=== PATIENT | male | born 1950 | race Hispanic/Latino ===

== ENCOUNTER 2021-05-29 08:17 | Inpatient (IN) | payer MEDICARE ==
[2021-05-27 09:43] LABS: BASOPHILS % (AUTO) 0.8 % (0.0-5.0); EOSINOPHILS % (AUTO) 5.2 % (0.0-8.0); HEMATOCRIT 49.4 % (42-54); LYMPHOCYTES % (AUTO) 24.2 % (21.0-51.0); MEAN CORPUSCULAR HEMOGLOBIN 28.4 pg (27.0-33.0); MEAN CORPUSCULAR VOLUME 86.1 fL (79-99); MONOCYTES % (AUTO) 12.4 % (3.0-13.0); NEUTROPHILS % (AUTO) 56.9 % (40.0-77.0); PLATELET COUNT (AUTO) 204 K/uL (130-400); RED BLOOD CELL COUNT(AUTO) 5.74 MIL/uL (4.50-6.20); RED CELL DISTRIBUTION WIDTH 12.2 % (11.0-15.5); WHITE BLOOD COUNT (AUTO) 7.4 K/uL (4.8-10.8)
[2021-05-27 09:46] LABS: APPEARANCE,URINE Clear (CLEAR); BILIRUBIN,URINE Negative (NEGATIVE); COLOR,URINE Yellow (YELLOW); GLUCOSE, URINE (UA) Negative (NEGATIVE); KETONES,URINE Negative (NEGATIVE); LEUKOCYTE ESTERASE ,URINE Negative (NEGATIVE); NITRATE,URINE Negative (NEGATIVE); OCCULT BLOOD,URINE Negative (NEGATIVE); PROTEIN,URINE Negative (NEGATIVE); UROBILINOGEN,URINE 0.2 mg/dL (0.2-1.0)
[2021-05-27 09:52] LABS: CREATININE 0.8 mg/dL (0.5-1.5); POTASSIUM 4.2 mmol/L (3.5-5.1)
[2021-05-27 09:55] LABS: INR 1.1 (0.85-1.15); PARTIAL THROMBOPLASTIN TIME 25.2 SEC (26.3-35.5); PROTHROMBIN TIME 11.3 SEC (9.6-11.6)
[2021-05-27 10:46] LABS: B-TYPE NATRIURETIC PEPTIDE 59 pg/mL (0-100)
[2021-05-29] VITALS (21 sets, daily range): BP systolic 109–154; BP diastolic 57–83
[~2021-05-29] VITALS: Ht 162.6 cm; Wt 83.5 kg
[~2021-05-29 08:17] MED LIST: 0.9% NACL 500ML IV.SOLN 500 ML IV SCH; ASPI-1443 PO; ATOR20TA65 PO; METO25TA6 PO
[2021-05-29] MEDS ORDERED: 0.9%NACL 1000ML 1,000 ML IV ONE (09:42)
[2021-05-29] MEDS ORDERED: IOHEXOL 350 MG/ML 100ML INFUS..BTL IV ONE (12:01)
[2021-05-29] MEDS ORDERED: LIDOCAINE HCL 1% MDV 50ML VIAL ONE (12:01)
[2021-05-29] MEDS ORDERED: IOHEXOL-350 50ML VIAL IV ONE (12:01)
[2021-05-29] MEDS ORDERED: NITROGLYCERIN 50MG VIAL ONE (12:02)
[2021-05-29] MEDS ORDERED: MIDAZOLAM HCL 1 MG/ML 2ML VIAL ONE (12:02)
[2021-05-29] MEDS ORDERED: FENTANYL CITRATE PF 50 MCG/1 ML 2ML VIAL ONE (12:03)
[2021-05-29] MEDS ORDERED: DEXTROSE 50%-WATER 50 ML DISP.SYRIN IV PRN (13:00)
[2021-05-29] MEDS ORDERED: GLUCAGON 1MG KIT 1 MG ML IM PRN (13:00)
[2021-05-29] MEDS ORDERED: 0.9%NACL 1000ML 1,000 ML IV SCH (13:00)
[2021-05-29] MEDS ORDERED: ONDANSETRON 4MG INJ IVP PRN (22:00)
[2021-05-29] MEDS ORDERED: ACETAMINOPHEN 325 MG TAB PO PRN (22:00)
[2021-05-29] MEDS: ATORVASTATIN 20 MG TABLET PO SCH (22:09)
[2021-05-29] MEDS: ASPIRIN 81 MG EC TAB PO SCH (22:09)
[2021-05-30] VITALS (7 sets, daily range): BP systolic 119–140; BP diastolic 67–81
[2021-05-30 04:08] LABS: BASOPHILS % (AUTO) 0.6 % (0.0-5.0); EOSINOPHILS % (AUTO) 5.2 % (0.0-8.0); HEMATOCRIT 45.1 % (42-54); LYMPHOCYTES % (AUTO) 23.3 % (21.0-51.0); MEAN CORPUSCULAR HEMOGLOBIN 29.1 pg (27.0-33.0); MEAN CORPUSCULAR HGB CONC 33.7 g/dL (32.0-36.0); MEAN CORPUSCULAR VOLUME 86.4 fL (79-99); MONOCYTES % (AUTO) 10.7 % (3.0-13.0); NEUTROPHILS % (AUTO) 59.9 % (40.0-77.0); PLATELET COUNT (AUTO) 195 K/uL (130-400); RED BLOOD CELL COUNT(AUTO) 5.22 MIL/uL (4.50-6.20); RED CELL DISTRIBUTION WIDTH 12.4 % (11.0-15.5); WHITE BLOOD COUNT (AUTO) 8.9 K/uL (4.8-10.8)
[2021-05-30 04:12] LABS: HEMOGLOBIN A1C 5.6 % (4.0-6.0)
[2021-05-30 04:18] LABS: INR 1.09 (0.85-1.15); PROTHROMBIN TIME 11.8 SEC (9.6-11.6)
[2021-05-30 04:20] LABS: B-TYPE NATRIURETIC PEPTIDE 57 pg/mL (0-100); PARTIAL THROMBOPLASTIN TIME 26.2 SEC (26.3-35.5)
[2021-05-30 04:29] LABS: ALBUMIN 3.5 g/dL (3.5-5.0); BILIRUBIN,TOTAL 0.7 mg/dL (0.2-1.0); CREATININE 0.9 mg/dL (0.5-1.5); MAGNESIUM 2.1 mg/dL (1.80-2.40); TOTAL PROTEIN, SERUM 6.8 g/dL (6.0-8.3)
[2021-05-30] MEDS ORDERED: ENOXAPARIN SODIUM 30 MG/0.3 ML SQ SCH (09:00)
[2021-05-30] MEDS: METOPROLOL TARTRATE 25 MG TAB PO SCH (09:07)
[2021-05-30] MEDS: FAMOTIDINE 20MG VIAL IV SCH ×2 (09:08→21:00)
[2021-05-30] MEDS: ASPIRIN 81 MG EC TAB PO SCH (21:00)
[2021-05-30] MEDS: ATORVASTATIN 20 MG TABLET PO SCH (21:00)
[2021-05-31] VITALS (42 sets, daily range): BP systolic 81–189; BP diastolic 41–103
[2021-05-31 03:38] LABS: BASOPHILS % (AUTO) 0.7 % (0.0-5.0); EOSINOPHILS % (AUTO) 5.8 % (0.0-8.0); HEMATOCRIT 44.9 % (42-54); LYMPHOCYTES % (AUTO) 25.6 % (21.0-51.0); MEAN CORPUSCULAR HEMOGLOBIN 28.6 pg (27.0-33.0); MEAN CORPUSCULAR HGB CONC 33.2 g/dL (32.0-36.0); MEAN CORPUSCULAR VOLUME 86.2 fL (79-99); MONOCYTES % (AUTO) 11.6 % (3.0-13.0); NEUTROPHILS % (AUTO) 55.9 % (40.0-77.0); PLATELET COUNT (AUTO) 176 K/uL (130-400); RED BLOOD CELL COUNT(AUTO) 5.21 MIL/uL (4.50-6.20); RED CELL DISTRIBUTION WIDTH 12.3 % (11.0-15.5)
[2021-05-31 04:12] LABS: ALBUMIN 3.5 g/dL (3.5-5.0); BILIRUBIN,TOTAL 0.6 mg/dL (0.2-1.0); CREATININE 0.9 mg/dL (0.5-1.5); MAGNESIUM 2.2 mg/dL (1.80-2.40); PHOSPHORUS 3.6 mg/dL (2.5-4.9); POTASSIUM 4.4 mmol/L (3.5-5.1); TOTAL PROTEIN, SERUM 6.8 g/dL (6.0-8.3)
[2021-05-31] MEDS: METOPROLOL TARTRATE 25 MG TAB PO SCH (08:07)
[2021-05-31] MEDS: FAMOTIDINE 20MG VIAL IV SCH (08:07)
[2021-05-31] MEDS ORDERED: AMINOCAPROIC ACID 5,000MG VIAL 15,000 MG in 0.9% NACL 500ML IV.SOLN 420 ML IV PRN (08:30)
[2021-05-31] MEDS ORDERED: NOREPINEPHRINE BITARTRATE 8 MG in 0.9% NACL 250ML 250 ML IV PRN (08:30)
[2021-05-31] MEDS ORDERED: EPINEPHRINE PF 1MG AMP 10 MG in 0.9% NACL 250ML 240 ML IV PRN ×2 (08:30→15:30)
[2021-05-31] MEDS ORDERED: CEFAZOLIN SODIUM 1 GM VIAL ONE ×2 (11:45→13:28)
[2021-05-31] MEDS ORDERED: PAPAVERINE HCL 30 MG/ML 2ML VIAL ONE (11:46)
[2021-05-31] MEDS ORDERED: OCTYL 2-CYANOACRYLATE 1 EACH TP ONE (11:46)
[2021-05-31] MEDS ORDERED: NOREPINEPHRINE BITARTRATE 1 MG/1 ML ML IV ONE (11:49)
[2021-05-31] MEDS ORDERED: PROTAMINE SULFATE 10 MG/ML 25ML VIAL IV ONE (11:49)
[2021-05-31] MEDS ORDERED: HEPARIN 10,000 UNIT/10ML (1,000 UNIT/ML) VIAL ONE (11:49)
[2021-05-31] MEDS ORDERED: EPINEPHRINE PF 1MG AMP ONE (11:49)
[2021-05-31] MEDS ORDERED: ESMOLOL HCL 10 MG/ML 10 ML VIAL ONE (11:49)
[2021-05-31] MEDS ORDERED: AMINOCAPROIC ACID 5,000MG VIAL ONE (11:49)
[2021-05-31] MEDS ORDERED: FENTANYL CITRATE PF 50 MCG/1 ML 20ML VIAL IJ ONE (11:49)
[2021-05-31] MEDS ORDERED: LIDOCAINE PF 100MG/5ML (2%) SYRINGE 5ML ONE ×2 (11:49→11:50)
[2021-05-31] MEDS ORDERED: SODIUM BICARB 50MEQ 50ML VIAL 150 ML ONE (11:49)
[2021-05-31] MEDS ORDERED: ROCURONIUM 10MG/1ML SYR 10 MG/ML ML ONE ×2 (11:50→13:52)
[2021-05-31] MEDS ORDERED: PROPOFOL 10 MG/ML 20ML VIAL IV ONE (11:50)
[2021-05-31] MEDS ORDERED: MIDAZOLAM HCL 1 MG/ML 2ML VIAL ONE (11:50)
[2021-05-31] MEDS ORDERED: ETOMIDATE 20MG VIAL ONE (11:51)
[2021-05-31] MEDS ORDERED: AMIODARONE 150MG VIAL ONE (11:52)
[2021-05-31] MEDS ORDERED: VASOPRESSIN 20 UNITS/ML 1ML VIAL ONE (11:52)
[2021-05-31 13:07] LABS: ABG BASE EXCESS -4.1 mmol/L (-2.0-3.0); ABG HCO3 21.2 mmol/L (21.0-28.0); ABG OXYGEN SATURATION 99.6 % (95.0-99.0); ABG PCO2 40 mmHg (35-48)
[2021-05-31] MEDS ORDERED: SODIUM BICARB 50MEQ 50ML VIAL 50 ML ONE (13:20)
[2021-05-31] MEDS ORDERED: SODIUM BICARB 50MEQ 50ML VIAL 200 ML ONE (13:21)
[2021-05-31] MEDS ORDERED: NITROGLYCERIN 50MG/D5W 250ML 1 BOT ONE (13:27)
[2021-05-31] MEDS ORDERED: GLYCOPYRROLATE 1 MG/5 ML SYRINGE ONE (13:28)
[2021-05-31] MEDS ORDERED: ATROPINE 1MG SYG IVP ONE (13:29)
[2021-05-31 13:43] LABS: ABG BASE EXCESS 2.9 mmol/L (-2.0-3.0); ABG OXYGEN SATURATION 99.5 % (95.0-99.0); ABG PCO2 40 mmHg (35-48)
[2021-05-31 15:13] LABS: ABG BASE EXCESS -5.8 mmol/L (-2.0-3.0); ABG OXYGEN SATURATION 99.4 % (95.0-99.0); ABG PCO2 35 mmHg (35-48)
[2021-05-31] MEDS ORDERED: NOREPINEPHRIN 4MG/NS 250ML 250 ML IV PRN (15:30)
[2021-05-31] MEDS ORDERED: DEXTROSE 50%-WATER 50 ML DISP.SYRIN IV PRN (15:30)
[2021-05-31] MEDS ORDERED: MAGNESIUM 2GM PREMIX 50ML 50 ML IV PRN (15:30)
[2021-05-31] MEDS ORDERED: ONDANSETRON 4MG INJ IV PRN (15:30)
[2021-05-31] MEDS ORDERED: MORPHINE 2 MG SYG IV PRN (15:30)
[2021-05-31] MEDS ORDERED: 0.9%NACL 10ML VIAL IVP PRN (15:30)
[2021-05-31] MEDS ORDERED: TRAMADOL HCL 50 MG TABLET PO PRN (15:30)
[2021-05-31] MEDS ORDERED: POTASSIUM PHOS 15 mMOL+NS250ML 250 ML IV PRN (15:30)
[2021-05-31] MEDS ORDERED: INSULIN REGULAR, HUMAN 3ML 100 UNIT in 0.9%NACL 100ML 99 ML IV SCH ×2 (15:30)
[2021-05-31] MEDS ORDERED: AMINOCAPROIC ACID 5,000MG VIAL 15,000 MG in 0.9% NACL 250ML 250 ML IV SCH (15:30)
[2021-05-31] MEDS ORDERED: 0.9% NACL 500ML IV.SOLN 500 ML IV SCH (15:30)
[2021-05-31] MEDS ORDERED: GLUCAGON 1MG KIT 1 MG ML IM PRN (15:30)
[2021-05-31] MEDS ORDERED: NITROGLYCERIN 50MG/D5W 250ML 250 BOT IV SCH (15:30)
[2021-05-31] MEDS ORDERED: ASPIRIN 81MG CHEW TAB NG ONE (15:30)
[2021-05-31] MEDS ORDERED: ACETAMINOPHEN 650 MG SUPPOSITORY RC PRN (15:30)
[2021-05-31] MEDS ORDERED: ALBUMIN (HUMAN) 5% 250 ML IV PRN (15:30)
[2021-05-31] MEDS ORDERED: MORPHINE 4 MG SYG IV PRN (15:30)
[2021-05-31] MEDS ORDERED: PROPOFOL 1000 MG/100 ML 100 ML IV PRN (15:30)
[2021-05-31] MEDS ORDERED: CALCIUM GLUC 1GM 1 GM in 0.9%NACL 50ML 50 ML IV PRN (15:30)
[2021-05-31] MEDS ORDERED: 0.9%NACL 1000ML 1,000 ML IV SCH (15:30)
[2021-05-31 16:22] LABS: ABG BASE EXCESS -5.4 mmol/L (-2.0-3.0); ABG HCO3 22.3 mmol/L (21.0-28.0); ABG OXYGEN SATURATION 96.3 % (95.0-99.0); ABG PCO2 52 mmHg (35-48)
[2021-05-31 16:23] LABS: HEMATOCRIT 43.4 % (42-54); MEAN CORPUSCULAR HGB CONC 34.1 g/dL (32.0-36.0); MEAN CORPUSCULAR VOLUME 87.9 fL (79-99); RED BLOOD CELL COUNT(AUTO) 4.94 MIL/uL (4.50-6.20); RED CELL DISTRIBUTION WIDTH 12.4 % (11.0-15.5); WHITE BLOOD COUNT (AUTO) 27.3 K/uL (4.8-10.8)
[2021-05-31 16:25] LABS: BASE EXCESS,VENOUS BLOOD GAS -5.5 (-2.0-3.0); HCO3,VENOUS BLOOD GAS 23.4 (21.0-28.0); PCO2,VENOUS BLOOD GAS 60 (35-48); PH,VENOUS BLOOD GAS 7.211 (7.350-7.450)
[2021-05-31] MEDS: POTASSIUM CHLORIDE 20MEQ/100ML 100 ML IV PRN ×4 (16:32→22:06)
[2021-05-31] MEDS: SODIUM BICARB 50MEQ 50ML VIAL IV PRN ×4 (16:33→18:21)
[2021-05-31 16:38] LABS: INR 1.21 (0.85-1.15)
[2021-05-31 16:40] LABS: PARTIAL THROMBOPLASTIN TIME 24.7 SEC (26.3-35.5)
[2021-05-31 16:47] LABS: CREATININE 1.1 mg/dL (0.5-1.5); MAGNESIUM 1.7 mg/dL (1.80-2.40); POTASSIUM 3.8 mmol/L (3.5-5.1)
[2021-05-31] MEDS: MORPHINE 2 MG SYG IV PRN ×2 (17:04→23:44)
[2021-05-31] MEDS: ACETAMINOPHEN 325 MG TAB PO PRN ×2 (17:05→22:05)
[2021-05-31 17:19] LABS: ABG HCO3 26.3 mmol/L (21.0-28.0); ABG OXYGEN SATURATION 94.6 % (95.0-99.0); ABG PCO2 45 mmHg (35-48)
[2021-05-31 18:19] LABS: ABG BASE EXCESS -2.2 mmol/L (-2.0-3.0); ABG HCO3 19.5 mmol/L (21.0-28.0); ABG OXYGEN SATURATION 97.2 % (95.0-99.0); ABG PCO2 26 mmHg (35-48)
[2021-05-31 19:05] LABS: ABG HCO3 27.7 mmol/L (21.0-28.0); ABG OXYGEN SATURATION 97.3 % (95.0-99.0); ABG PCO2 43 mmHg (35-48)
[2021-05-31] MEDS ORDERED: CALCIUM GLUC 1GM/10ML VIAL ONE (19:20)
[2021-05-31 20:04] LABS: ABG BASE EXCESS 0.5 mmol/L (-2.0-3.0); ABG HCO3 25.7 mmol/L (21.0-28.0); ABG OXYGEN SATURATION 96.4 % (95.0-99.0); ABG PCO2 44 mmHg (35-48)
[2021-05-31] MEDS ORDERED: FAMOTIDINE 20MG VIAL IV SCH (21:00)
[2021-05-31 21:11] LABS: ABG BASE EXCESS 0.1 mmol/L (-2.0-3.0); ABG HCO3 25.2 mmol/L (21.0-28.0); ABG OXYGEN SATURATION 96.6 % (95.0-99.0); ABG PCO2 43 mmHg (35-48)
[2021-05-31] MEDS: CEFAZOLIN SODIUM 1 GM VIAL IV SCH (22:04)
[2021-05-31 22:16] LABS: ABG BASE EXCESS 0.3 mmol/L (-2.0-3.0); ABG HCO3 24.8 mmol/L (21.0-28.0); ABG OXYGEN SATURATION 96.8 % (95.0-99.0); ABG PCO2 40 mmHg (35-48)
[2021-06-01] VITALS (31 sets, daily range): BP systolic 93–135; BP diastolic 46–82
[2021-06-01 00:53] LABS: ABG BASE EXCESS 0.5 mmol/L (-2.0-3.0); ABG HCO3 26.1 mmol/L (21.0-28.0); ABG OXYGEN SATURATION 95.7 % (95.0-99.0); ABG PCO2 45 mmHg (35-48)
[2021-06-01 02:19] LABS: ABG BASE EXCESS 1.4 mmol/L (-2.0-3.0); ABG HCO3 26.6 mmol/L (21.0-28.0); ABG OXYGEN SATURATION 96.8 % (95.0-99.0); ABG PCO2 45 mmHg (35-48)
[2021-06-01] MEDS: TRAMADOL HCL 50 MG TABLET PO PRN ×3 (02:52→19:21)
[2021-06-01] MEDS: CEFAZOLIN SODIUM 1 GM VIAL IV SCH ×2 (05:00→13:04)
[2021-06-01 05:01] LABS: ABG BASE EXCESS 2.6 mmol/L (-2.0-3.0); ABG HCO3 27.6 mmol/L (21.0-28.0); ABG OXYGEN SATURATION 96.6 % (95.0-99.0); ABG PCO2 44 mmHg (35-48)
[2021-06-01 05:03] LABS: HEMATOCRIT 39.2 % (42-54); MEAN CORPUSCULAR HEMOGLOBIN 28.7 pg (27.0-33.0); MEAN CORPUSCULAR HGB CONC 32.4 g/dL (32.0-36.0); MEAN CORPUSCULAR VOLUME 88.5 fL (79-99); RED BLOOD CELL COUNT(AUTO) 4.43 MIL/uL (4.50-6.20); RED CELL DISTRIBUTION WIDTH 12.7 % (11.0-15.5); WHITE BLOOD COUNT (AUTO) 15.9 K/uL (4.8-10.8)
[2021-06-01 05:12] LABS: INR 1.21 (0.85-1.15)
[2021-06-01 05:14] LABS: PARTIAL THROMBOPLASTIN TIME 26.5 SEC (26.3-35.5)
[2021-06-01 05:20] LABS: CREATININE 1.1 mg/dL (0.5-1.5); PHOSPHORUS 4.2 mg/dL (2.5-4.9); POTASSIUM 4.3 mmol/L (3.5-5.1)
[2021-06-01] MEDS: FAMOTIDINE 20MG TAB PO SCH ×2 (09:33→21:13)
[2021-06-01] MEDS: ASPIRIN 81MG CHEW TAB PO SCH (10:27)
[2021-06-01] MEDS: METOPROLOL TARTRATE 25 MG TAB PO SCH (21:13)
[2021-06-01] MEDS: ATORVASTATIN 40 MG TABLET PO SCH (21:13)
[2021-06-02] VITALS (30 sets, daily range): BP systolic 95–134; BP diastolic 51–84
[2021-06-02 04:13] LABS: BASOPHILS % (AUTO) 0.4 % (0.0-5.0); EOSINOPHILS % (AUTO) 0.5 % (0.0-8.0); HEMATOCRIT 36.5 % (42-54); LYMPHOCYTES % (AUTO) 11.2 % (21.0-51.0); MEAN CORPUSCULAR HEMOGLOBIN 28.9 pg (27.0-33.0); MEAN CORPUSCULAR HGB CONC 32.3 g/dL (32.0-36.0); MEAN CORPUSCULAR VOLUME 89.2 fL (79-99); MONOCYTES % (AUTO) 8.7 % (3.0-13.0); NEUTROPHILS % (AUTO) 78.9 % (40.0-77.0); PLATELET COUNT (AUTO) 108 K/uL (130-400); RED BLOOD CELL COUNT(AUTO) 4.09 MIL/uL (4.50-6.20); RED CELL DISTRIBUTION WIDTH 12.7 % (11.0-15.5)
[2021-06-02 04:36] LABS: ALBUMIN 2.7 g/dL (3.5-5.0); BILIRUBIN,TOTAL 0.9 mg/dL (0.2-1.0); CREATININE 0.9 mg/dL (0.5-1.5); MAGNESIUM 2.2 mg/dL (1.80-2.40); PHOSPHORUS 2.6 mg/dL (2.5-4.9); POTASSIUM 4.4 mmol/L (3.5-5.1); TOTAL PROTEIN, SERUM 5.8 g/dL (6.0-8.3)
[2021-06-02] MEDS: METOPROLOL TARTRATE 25 MG TAB PO SCH ×2 (08:12→21:03)
[2021-06-02] MEDS: ASPIRIN 81MG CHEW TAB PO SCH (08:12)
[2021-06-02] MEDS: FAMOTIDINE 20MG TAB PO SCH ×2 (08:23→21:04)
[2021-06-02] MEDS ORDERED: AMIODARONE 900MG VIAL 360 MG in DEXTROSE 5%-WATER 200 ML IV SCH (08:30)
[2021-06-02] MEDS ORDERED: AMIODARONE 900MG VIAL 150 MG in DEXTROSE 5%-WATER 100 ML IV SCH (08:30)
[2021-06-02] MEDS: AMIODARONE 900MG VIAL 540 MG in DEXTROSE 5%-WATER 300 ML IV SCH ×2 (08:45→16:19)
[2021-06-02] MEDS ORDERED: FUROSEMIDE 20 MG TABLET PO SCH (10:00)
[2021-06-02] MEDS: TRAMADOL HCL 50 MG TABLET PO PRN (10:03)
[2021-06-02] MEDS: FUROSEMIDE 20 MG TABLET PO SCH (16:23)
[2021-06-02] MEDS ORDERED: METOPROLOL TARTRATE 25 MG TAB PO SCH (21:00)
[2021-06-02] MEDS: ATORVASTATIN 40 MG TABLET PO SCH (21:03)
[2021-06-03] VITALS (7 sets, daily range): BP systolic 113–126; BP diastolic 58–75
[2021-06-03] MEDS: AMIODARONE 900MG VIAL 540 MG in DEXTROSE 5%-WATER 300 ML IV SCH ×2 (03:07→21:44)
[2021-06-03 04:25] LABS: BASOPHILS % (AUTO) 0.3 % (0.0-5.0); EOSINOPHILS % (AUTO) 1.9 % (0.0-8.0); HEMATOCRIT 34.9 % (42-54); LYMPHOCYTES % (AUTO) 10.7 % (21.0-51.0); MEAN CORPUSCULAR HEMOGLOBIN 29.6 pg (27.0-33.0); MEAN CORPUSCULAR HGB CONC 33.8 g/dL (32.0-36.0); MEAN CORPUSCULAR VOLUME 87.7 fL (79-99); MONOCYTES % (AUTO) 8.3 % (3.0-13.0); NEUTROPHILS % (AUTO) 78.2 % (40.0-77.0); PLATELET COUNT (AUTO) 114 K/uL (130-400); RED BLOOD CELL COUNT(AUTO) 3.98 MIL/uL (4.50-6.20); RED CELL DISTRIBUTION WIDTH 12.4 % (11.0-15.5); WHITE BLOOD COUNT (AUTO) 12.7 K/uL (4.8-10.8)
[2021-06-03 04:37] LABS: ALBUMIN 2.5 g/dL (3.5-5.0); BILIRUBIN,TOTAL 1.2 mg/dL (0.2-1.0); CREATININE 0.9 mg/dL (0.5-1.5); MAGNESIUM 2.1 mg/dL (1.80-2.40); PHOSPHORUS 2.5 mg/dL (2.5-4.9); POTASSIUM 3.8 mmol/L (3.5-5.1); TOTAL PROTEIN, SERUM 6.1 g/dL (6.0-8.3)
[2021-06-03] MEDS ORDERED: AMIODARONE 200 MG TABLET PO SCH (09:00)
[2021-06-03] MEDS: FAMOTIDINE 20MG TAB PO SCH ×2 (09:25→21:57)
[2021-06-03] MEDS: METOPROLOL TARTRATE 25 MG TAB PO SCH ×2 (09:25→21:57)
[2021-06-03] MEDS: FUROSEMIDE 20 MG TABLET PO SCH ×2 (09:25→17:29)
[2021-06-03] MEDS: AMIODARONE 200 MG TABLET PO SCH ×2 (09:25→21:58)
[2021-06-03] MEDS: ASPIRIN 81MG CHEW TAB PO SCH (09:26)
[2021-06-03] MEDS: ENOXAPARIN SODIUM 30 MG/0.3 ML SQ SCH (09:26)
[2021-06-03] MEDS: ACETAMINOPHEN 325 MG TAB PO PRN ×2 (11:54→22:01)
[2021-06-03] MEDS: POLYETHYLENE GLYCOL 3350 17 GM POWD.PACK PO SCH (17:29)
[2021-06-03] MEDS: DOCUSATE CALCIUM 240 MG CAP PO SCH (19:09)
[2021-06-03] MEDS: SENNOSIDES 8.6 MG TABLET PO SCH (21:57)
[2021-06-03] MEDS: ATORVASTATIN 40 MG TABLET PO SCH (21:57)
[2021-06-04 03:27] VITALS: BP 117/84
[2021-06-04 04:32] LABS: BASOPHILS % (AUTO) 0.5 % (0.0-5.0); EOSINOPHILS % (AUTO) 1.8 % (0.0-8.0); HEMATOCRIT 39.1 % (42-54); LYMPHOCYTES % (AUTO) 11.4 % (21.0-51.0); MEAN CORPUSCULAR HEMOGLOBIN 28.4 pg (27.0-33.0); MEAN CORPUSCULAR VOLUME 86.1 fL (79-99); MONOCYTES % (AUTO) 9.9 % (3.0-13.0); NEUTROPHILS % (AUTO) 75.5 % (40.0-77.0); PLATELET COUNT (AUTO) 162 K/uL (130-400); RED BLOOD CELL COUNT(AUTO) 4.54 MIL/uL (4.50-6.20); RED CELL DISTRIBUTION WIDTH 12.3 % (11.0-15.5); WHITE BLOOD COUNT (AUTO) 13.7 K/uL (4.8-10.8)
[2021-06-04 04:49] LABS: CREATININE 0.9 mg/dL (0.5-1.5); MAGNESIUM 2.3 mg/dL (1.80-2.40); PHOSPHORUS 2.7 mg/dL (2.5-4.9); POTASSIUM 3.9 mmol/L (3.5-5.1)
[2021-06-04 08:10] VITALS: BP 112/66
[2021-06-04] MEDS: POLYETHYLENE GLYCOL 3350 17 GM POWD.PACK PO SCH (08:21)
[2021-06-04] MEDS: ENOXAPARIN SODIUM 30 MG/0.3 ML SQ SCH (08:21)
[2021-06-04] MEDS: ASPIRIN 81MG CHEW TAB PO SCH (08:24)
[2021-06-04] MEDS: METOPROLOL TARTRATE 25 MG TAB PO SCH ×2 (08:26→20:42)
[2021-06-04] MEDS: FUROSEMIDE 20 MG TABLET PO SCH (08:26)
[2021-06-04] MEDS: FAMOTIDINE 20MG TAB PO SCH ×2 (08:27→20:42)
[2021-06-04] MEDS: SENNOSIDES 8.6 MG TABLET PO SCH (08:27)
[2021-06-04] MEDS: DOCUSATE CALCIUM 240 MG CAP PO SCH (08:27)
[2021-06-04] MEDS ORDERED: ZOSYN 3.375GM+NS 50ML 50 ML ONE (10:42)
[2021-06-04 12:10] VITALS: BP 94/52
[2021-06-04 16:10] VITALS: BP 125/70
[2021-06-04 19:40] VITALS: BP 127/72
[2021-06-04] MEDS: ATORVASTATIN 40 MG TABLET PO SCH (20:42)
[2021-06-04 23:14] VITALS: BP 112/62
[2021-06-05] VITALS (11 sets, daily range): BP systolic 40–143; BP diastolic 20–76
[2021-06-05 04:21] LABS: BASOPHILS % (AUTO) 0.7 % (0.0-5.0); EOSINOPHILS % (AUTO) 2.5 % (0.0-8.0); HEMATOCRIT 39.1 % (42-54); LYMPHOCYTES % (AUTO) 10.7 % (21.0-51.0); MEAN CORPUSCULAR HEMOGLOBIN 29.1 pg (27.0-33.0); MEAN CORPUSCULAR HGB CONC 33.8 g/dL (32.0-36.0); MEAN CORPUSCULAR VOLUME 86.1 fL (79-99); MONOCYTES % (AUTO) 13.2 % (3.0-13.0); NEUTROPHILS % (AUTO) 71.6 % (40.0-77.0); PLATELET COUNT (AUTO) 197 K/uL (130-400); RED BLOOD CELL COUNT(AUTO) 4.54 MIL/uL (4.50-6.20); RED CELL DISTRIBUTION WIDTH 12.8 % (11.0-15.5); WHITE BLOOD COUNT (AUTO) 12.2 K/uL (4.8-10.8)
[2021-06-05 04:40] LABS: ALBUMIN 2.4 g/dL (3.5-5.0); BILIRUBIN,TOTAL 1.1 mg/dL (0.2-1.0); CREATININE 0.9 mg/dL (0.5-1.5); POTASSIUM 4.1 mmol/L (3.5-5.1); TOTAL PROTEIN, SERUM 6.4 g/dL (6.0-8.3)
[2021-06-05] MEDS: FAMOTIDINE 20MG TAB PO SCH ×2 (08:20→20:51)
[2021-06-05] MEDS: POLYETHYLENE GLYCOL 3350 17 GM POWD.PACK PO SCH (08:20)
[2021-06-05] MEDS: DOCUSATE CALCIUM 240 MG CAP PO SCH (08:20)
[2021-06-05] MEDS: FUROSEMIDE 20 MG TABLET PO SCH ×2 (09:00→17:00)
[2021-06-05] MEDS ORDERED: ATROPINE 1MG SYG IVP ONE (09:52)
[2021-06-05] MEDS ORDERED: 0.9% NACL 500ML IV.SOLN 500 ML IV SCH (10:30)
[2021-06-05] MEDS: ASPIRIN 81MG CHEW TAB PO SCH (11:58)
[2021-06-05] MEDS: METOPROLOL TARTRATE 25 MG TAB PO SCH ×2 (11:58→20:51)
[2021-06-05] MEDS: HEPARIN 25,000 UNITS/250ML D5W 250 ML IV SCH ×2 (12:08→23:55)
[2021-06-05] MEDS: AMIODARONE 900MG VIAL 540 MG in DEXTROSE 5%-WATER 300 ML IV SCH ×2 (12:11→23:56)
[2021-06-05 15:42] LABS: INR 1.14 (0.85-1.15); PROTHROMBIN TIME 12.3 SEC (9.6-11.6)
[2021-06-05 15:43] LABS: PARTIAL THROMBOPLASTIN TIME 44.1 SEC (26.3-35.5)
[2021-06-05] MEDS ORDERED: 0.9% NACL 250ML IV SCH (18:00)
[2021-06-05] MEDS: ATORVASTATIN 40 MG TABLET PO SCH (20:51)
[2021-06-05] MEDS ORDERED: LACTULOSE 20 GM/30 ML UDCUP PO SCH (21:00)
[2021-06-05 21:40] LABS: INR 1.1 (0.85-1.15); PROTHROMBIN TIME 11.9 SEC (9.6-11.6)
[2021-06-05 21:58] LABS: PARTIAL THROMBOPLASTIN TIME 107.3 SEC (26.3-35.5)
[2021-06-06] VITALS (9 sets, daily range): BP systolic 113–144; BP diastolic 51–83
[2021-06-06] MEDS: TEMAZEPAM 15 MG CAPSULE PO PRN ×2 (01:26→22:39)
[2021-06-06 04:09] LABS: BASOPHILS % (AUTO) 0.7 % (0.0-5.0); EOSINOPHILS % (AUTO) 2.9 % (0.0-8.0); HEMATOCRIT 34.6 % (42-54); LYMPHOCYTES % (AUTO) 12.6 % (21.0-51.0); MEAN CORPUSCULAR HEMOGLOBIN 29.3 pg (27.0-33.0); MEAN CORPUSCULAR HGB CONC 34.4 g/dL (32.0-36.0); MEAN CORPUSCULAR VOLUME 85.2 fL (79-99); MONOCYTES % (AUTO) 10.4 % (3.0-13.0); NEUTROPHILS % (AUTO) 70.8 % (40.0-77.0); PLATELET COUNT (AUTO) 206 K/uL (130-400); RED BLOOD CELL COUNT(AUTO) 4.06 MIL/uL (4.50-6.20); WHITE BLOOD COUNT (AUTO) 12.1 K/uL (4.8-10.8)
[2021-06-06 04:18] LABS: INR 1.42 (0.85-1.15)
[2021-06-06 04:20] LABS: ALBUMIN 2.3 g/dL (3.5-5.0); BILIRUBIN,TOTAL 0.8 mg/dL (0.2-1.0); POTASSIUM 3.8 mmol/L (3.5-5.1)
[2021-06-06 05:31] LABS: PARTIAL THROMBOPLASTIN TIME > 139.0 SEC (26.3-35.5)
[2021-06-06] MEDS: AMIODARONE 900MG VIAL 540 MG in DEXTROSE 5%-WATER 300 ML IV SCH (05:35)
[2021-06-06] MEDS: POLYETHYLENE GLYCOL 3350 17 GM POWD.PACK PO SCH (08:25)
[2021-06-06] MEDS: DOCUSATE CALCIUM 240 MG CAP PO SCH (08:25)
[2021-06-06] MEDS: ASPIRIN 81MG CHEW TAB PO SCH (08:25)
[2021-06-06] MEDS: AMIODARONE 200 MG TABLET PO SCH (08:26)
[2021-06-06] MEDS: FAMOTIDINE 20MG TAB PO SCH ×2 (08:26→21:02)
[2021-06-06] MEDS: METOPROLOL TARTRATE 25 MG TAB PO SCH ×2 (08:26→21:02)
[2021-06-06] MEDS: FUROSEMIDE 20 MG TABLET PO SCH ×2 (09:00→16:42)
[2021-06-06] MEDS ORDERED: POTASSIUM CHLORIDE 10% ELIXIR 20 MEQ/15 ML UDCUP PO PRN (11:00)
[2021-06-06] MEDS ORDERED: LIDOCAINE HCL-MPF 1% 2ML VIAL IV PRN (11:00)
[2021-06-06] MEDS ORDERED: POTASSIUM CHLORIDE 20MEQ/100ML 100 ML IV PRN (11:00)
[2021-06-06] MEDS: APIXABAN 5 MG TABLET PO SCH ×2 (11:45→21:02)
[2021-06-06] MEDS: KCL 20 MEQ ERTAB PO PRN ×2 (11:49→17:17)
[2021-06-06] MEDS: ATORVASTATIN 40 MG TABLET PO SCH (21:02)
[2021-06-07] MEDS: AMIODARONE 900MG VIAL 540 MG in DEXTROSE 5%-WATER 300 ML IV SCH (00:12)
[2021-06-07 03:00] VITALS: BP 112/63
[2021-06-07 04:36] LABS: BASOPHILS % (AUTO) 0.8 % (0.0-5.0); EOSINOPHILS % (AUTO) 3.1 % (0.0-8.0); HEMATOCRIT 37.8 % (42-54); LYMPHOCYTES % (AUTO) 13.7 % (21.0-51.0); MEAN CORPUSCULAR HGB CONC 34.7 g/dL (32.0-36.0); MEAN CORPUSCULAR VOLUME 83.8 fL (79-99); MONOCYTES % (AUTO) 12.3 % (3.0-13.0); NEUTROPHILS % (AUTO) 66.7 % (40.0-77.0); PLATELET COUNT (AUTO) 242 K/uL (130-400); RED BLOOD CELL COUNT(AUTO) 4.51 MIL/uL (4.50-6.20); RED CELL DISTRIBUTION WIDTH 12.9 % (11.0-15.5)
[2021-06-07 04:59] LABS: ALBUMIN 2.5 g/dL (3.5-5.0); CREATININE 0.8 mg/dL (0.5-1.5); POTASSIUM 4.4 mmol/L (3.5-5.1); TOTAL PROTEIN, SERUM 6.5 g/dL (6.0-8.3)
[2021-06-07 08:45] VITALS: BP 126/66
[2021-06-07] MEDS ORDERED: LACTULOSE 20 GM/30 ML UDCUP ONE (08:45)
[2021-06-07] MEDS: ASPIRIN 81MG CHEW TAB PO SCH (09:22)
[2021-06-07] MEDS: FAMOTIDINE 20MG TAB PO SCH (09:22)
[2021-06-07] MEDS: AMIODARONE 200 MG TABLET PO SCH (09:22)
[2021-06-07] MEDS: APIXABAN 5 MG TABLET PO SCH (09:22)
[2021-06-07] MEDS: METOPROLOL TARTRATE 25 MG TAB PO SCH (09:23)
[2021-06-07] MEDS: FUROSEMIDE 20 MG TABLET PO SCH (09:24)
[2021-06-07] MEDS ORDERED: LACTULOSE 20 GM/30 ML UDCUP PO SCH (10:00)
[2021-06-07 12:12] VITALS: BP 115/60
== END 2021-06-07 17:41 | DRG 233 ==
LOC: DAH 08:17 → DAHIP 08:18 → 2DH 20:25 → 2CV 05-31 11:50 → 2BH 06-01 07:23 → 2AH 06-02 16:24
PROVIDERS: ADMIT Internal Medicine Pulmonary Disease; ATTEND Internal Medicine Pulmonary Disease
PROC: 4A023N7 Measurement of Cardiac Sampling and Pressure, Left Heart, Percutaneous Approach (ICD-10-PCS; principal; 2021-05-29)
PROC: B2111ZZ Fluoroscopy of Multiple Coronary Arteries using Low Osmolar Contrast (ICD-10-PCS; 2021-05-29)
PROC: B41F1ZZ Fluoroscopy of Right Lower Extremity Arteries using Low Osmolar Contrast (ICD-10-PCS; 2021-05-29)
PROC: 06BQ4ZZ Excision of Left Saphenous Vein, Percutaneous Endoscopic Approach (ICD-10-PCS; 2021-05-31)
PROC: 5A1221Z Performance of Cardiac Output, Continuous (ICD-10-PCS; 2021-05-31)
PROC: 02100Z9 Bypass Coronary Artery, One Artery from Left Internal Mammary, Open Approach (ICD-10-PCS; 2021-05-31 12:00)
PROC: 021209W Bypass Coronary Artery, Three Arteries from Aorta with Autologous Venous Tissue, Open Approach (ICD-10-PCS; 2021-05-31 12:00)
PROC: B24BZZ4 Ultrasonography of Heart with Aorta, Transesophageal (ICD-10-PCS; 2021-06-05)
PROC: 5A2204Z Restoration of Cardiac Rhythm, Single (ICD-10-PCS; 2021-06-05)
DX: I25.10 Atherosclerotic heart disease of native coronary artery without angina pectoris (principal); J95.1 Acute pulmonary insufficiency following thoracic surgery; D62 Acute posthemorrhagic anemia; I48.92 Unspecified atrial flutter; Z20.822 Contact with and (suspected) exposure to COVID-19; I10 Essential (primary) hypertension; E78.5 Hyperlipidemia, unspecified; I48.0 Paroxysmal atrial fibrillation; D69.6 Thrombocytopenia, unspecified; E78.00 Pure hypercholesterolemia, unspecified; Z79.899 Other long term (current) drug therapy; E87.70 Fluid overload, unspecified; Z87.891 Personal history of nicotine dependence
CPT/HCPCS: 36415; 36600; 71045; 80048; 80053; 80061; 81003; 82435; 82803; 82947; 82948; 83036; 83605; 83735; 83880; 84100; 84132; 84295; 85018; 85025; 85027; 85347; 85610; 85730; 86850; 86900; 86901; 86923; 87635; 92960; 93005; 93312; 93458; 93880; 94002; 94010; 97039; 99156; 99157; A4606; A7048; C1894; G0378; J0171; J0282; J0461; J0610; J0690; J1644; J1650; J1815; J2001; J2250; J2405; J2440; J2543; J2704; J2720; J3010; J3475; J3480; J3490; J7030; J7040; J7060; J7120; P9045; Q9967